=== PATIENT | male | born 1980 | race Caucasian/White ===

== ENCOUNTER 2018-07-20 05:55 | Day surgery (SDC) | payer BC ==
[~2018-07-20] VITALS: Ht 190.5 cm; Wt 102.0 kg
[2018-07-20 06:36] VITALS: BP 144/96
[2018-07-20] MEDS ORDERED: LACTATED RINGERS 1,000 ML IV SCH (06:38)
[2018-07-20] MEDS ORDERED: no meds (06:50)
[2018-07-20] MEDS ORDERED: PROPOFOL 0 ML ONE (06:57)
[2018-07-20] MEDS ORDERED: FENTANYL PF 250 MCG/5ML ONE (06:58)
[2018-07-20] MEDS ORDERED: MIDAZOLAM 1 MG/ML, 2ML ONE (06:58)
[2018-07-20] MEDS ORDERED: LIDOCAINE 1%-EPI 1:100K, 20ML ONE (07:02)
[2018-07-20] MEDS ORDERED: BACITRACIN OINT 500U/GM, 15 GM ONE (07:02)
[2018-07-20] MEDS ORDERED: DIAZEPAM 5 MG TABLET PO ONE (07:30)
[2018-07-20] MEDS ORDERED: ACETAMINOPHEN 500 MG TABLET PO ONE (07:30)
== END 2018-07-20 09:12 | disposition home or self-care (01) ==
LOC: OUT 05:55
PROVIDERS: ATTEND Otolaryngology
DX: K11.6 Mucocele of salivary gland (principal)
CPT/HCPCS: 40812; 88305; J3490; J2250; J2704; J3010